=== PATIENT | female | born 1975 | race American Indian/Alaskan Native ===

== ENCOUNTER 2019-04-30 06:17 | Inpatient (IN) | payer OTHER ==
[2019-04-30] MEDS ORDERED: ASPIRIN PO ONE (06:38)
[2019-04-30 07:32] LABS: Basophils % (Auto) 0.4 % (0.0-1.8); Eosinophils % (Auto) 0.1 % (0.0-4.3); Hemoglobin 9.6 gm/dl (10.1-14.3); Lymphocytes # (Auto) 1.3 K/mm3 (1.2-5.4); Lymphocytes % (Auto) 15.4 % (13.4-35.0); Mean Corpuscular HGB Conc 32 % (30-34); Monocytes # (Auto) 0.5 K/mm3 (0.0-0.8); Monocytes % (Auto) 5.6 % (0.0-7.3); Platelet Count 457 K/mm3 (140-440); Red Blood Count 4.35 M/mm3 (3.65-5.03); Red Cell Distribution Width 19.1 % (13.2-15.2)
--- NOTE | 2019-04-30 07:35 | XRay Report ---
CHEST 2 VIEWS INDICATION: Chest Pain. COMPARISON: None FINDINGS: Support devices: None. Heart: Within normal limits. Lungs/pleura: No acute air space or interstitial disease. No pneumothorax. Additional findings: None. IMPRESSION: No acute findings. Signer Name: Patrick Reynolds Jr, MD Signed: 04/30/2019 7:30 AM Workstation Name: [id number]
[2019-04-30 07:38] LABS: Mean Corpuscular Volume 69 fl (79-97)
[2019-04-30 07:39] LABS: BUN/Creatinine Ratio 10; Blood Urea Nitrogen 7 mg/dL (7-17); Calcium 8.7 mg/dL (8.4-10.2); Hemolysis Index 0
[2019-04-30 08:26] LABS: Chol/HDL Ratio 3.82 %; HDL Cholesterol 39 mg/dL (40-59); LDL Cholesterol,Direct 108 mg/dL (50-130)
--- NOTE | 2019-04-30 08:53 | Emergency Department Report ---
ED Chest Pain HPI - General Chief Complaint: Chest Pain Stated Complaint: CHEST PAINS Time Seen by Provider: 04/30/19 08:50 Source: patient Mode of arrival: Ambulatory Limitations: No Limitations - History of Present Illness Initial Comments: This is a 43 year old female with no prior history of chest pain nor hypertension. She was awoken at 2 AM by precordial chest pain largely described as a pressure. She has been nauseated and vomited 1. She had triage labs done prior to bed placement. I was not verbally informed of a troponin of 0. 199. However I did noted on her chart as soon as I picked it up. She was seen immediately. Her EKG was nondiagnostic/essentially normal. She stated that she was largely not short of breath. She's had no recent travel nor leg pain or swelling. She states that she has no family history of coronary artery disease. She does have ongoing chest pain at the time of my encounter. MD Complaint: chest pain -: During the night Onset: awoke with symptoms Pain Location: substernal Severity: moderate, severe Quality: pressure Consistency: constant Improves With: nothing Worsens With: nothing re: nausea, vomting. denies: diaphoresis, dyspnea Other Symptoms: denies: cough, fever, syncope Treatments Prior to Arrival: none Aspirin use within the Past 7 Days: (0) No - Related Data Allergies Allergy/AdvReac Type Severity Reaction Status Date / Time No Known Allergies Allergy Unverified 04/30/19 06:38 Heart Score - HEART Score History: Highly suspicious EKG: Normal Age: 45-65 Risk factors: 1-2 risk factors Troponin: 1-3x normal limit HEART Score: 5 - Critical Actions Critical Actions: 4-6 pts:12-16.6% risk of adverse cardiac event. Should be admitted ED Review of Systems ROS: Stated complaint: CHEST PAINS Other details as noted in HPI Constitutional: denies: chills, fever Eyes: denies: eye pain, eye discharge, vision change ENT: denies: ear pain, throat pain Respiratory: denies: cough, shortness of breath, wheezing Cardiovascular: chest pain. denies: palpitations Endocrine: no symptoms reported Gastrointestinal: denies: abdominal pain, nausea, diarrhea Genitourinary: denies: urgency, dysuria, discharge Musculoskeletal: denies: back pain, joint swelling, arthralgia Skin: denies: rash, lesions Neurological: denies: headache, weakness, paresthesias Psychiatric: denies: anxiety, depression Hematological/Lymphatic: denies: easy bleeding, easy bruising ED Past Medical Hx - Past Medical History Previous Medical History?: Yes - Surgical History Past Surgical History?: Yes Additional Surgical History: Tubal Ligation - Social History Smoking Status: Current Every Day Smoker Substance Use Type: None ED Physical Exam - General Limitations: No Limitations General appearance: alert, other (appears uncomfortable) - Head Head exam: Present: atraumatic, normocephalic - Eye Eye exam: Present: normal appearance. Absent: scleral icterus - ENT ENT exam: Present: mucous membranes moist - Neck Neck exam: Present: normal inspection - Respiratory Respiratory exam: Present: normal lung sounds bilaterally. Absent: respiratory distress - Cardiovascular Cardiovascular Exam: Present: regular rate, normal rhythm. Absent: systolic murmur, diastolic murmur, rubs, gallop - GI/Abdominal GI/Abdominal exam: Present: soft, normal bowel sounds. Absent: distended, tenderness, guarding, rebound - Extremities Exam Extremities exam: Present: normal inspection, normal capillary refill. Absent: tenderness, calf tenderness - Back Exam Back exam: Present: normal inspection - Neurological Exam Neurological exam: Present: alert, oriented X3, CN II-XII intact. Absent: motor sensory deficit - Psychiatric Psychiatric exam: Present: normal affect, normal mood - Skin Skin exam: Present: warm, dry, intact, normal color. Absent: rash ED Course Vital Signs 04/30/19 04/30/19 06:32 09:04 Temperature 98.8 F Pulse Rate 90 77 Respiratory 18 16 Rate Blood Pressure 156/116 Blood Pressure 172/111 [Left] O2 Sat by Pulse 98 100 Oximetry - Reevaluation(s) Reevaluation #1: This was informed to initiate nitrates as soon as I came to the bedside. Cardiology was called. Dr. Jeanne Chaves came and as soon as a repeat EKG was performed we reviewed it. There was some serial changes which were suggestive of ischemia. Dr. Chaves stated the patient will be going to the [facility]. She was also started on anticoagulation and a nitro drip. 04/30/19 09:43 RIVERA score - Rivera Score Age > 65: (0) No Aspirin use within the Past 7 Days: (0) No 3 or more CAD Risk Factors: (0) No 2 or more Angina events in past 24 hrs: (0) No Known CAD with more than 50% Stenosis: (0) No Elevated Cardiac Markers: (1) Yes ST Deviation Greater than 0.5mm: (0) No RIVERA Score: 1 ED Medical Decision Making - Lab Data Result diagrams: 04/30/19 06:49 04/30/19 06:49 Laboratory Results - last 24 hr 04/30/19 04/30/19 04/30/19 06:49 06:49 06:49 WBC 8.2 RBC 4.35 Hgb 9.6 L Hct 30.0 L MCV 69 L MCH 22 L MCHC 32 RDW 19.1 H Plt Count 457 H Lymph % (Auto) 15.4 Titus % (Auto) 5.6 Eos % (Auto) 0.1 Baso % (Auto) 0.4 Lymph # 1.3 Titus # 0.5 Eos # 0.0 Baso # 0.0 Seg Neutrophils % 78.5 H Seg Neutrophils # 6.5 Sodium 141 Potassium 4.0 Chloride 106.5 Carbon Dioxide 21 L Anion Gap 18 BUN 7 Creatinine 0.7 Estimated GFR > 60 BUN/Creatinine Ratio 10 Glucose 142 H Calcium 8.7 Troponin T 0.199 H* Triglycerides 75 Cholesterol 149 LDL Cholesterol Direct 108 HDL Cholesterol 39 L Cholesterol/HDL Ratio 3.82 HCG, Qual Negative - EKG Data -: EKG Interpreted by Me EKG shows normal: sinus rhythm, axis, intervals, QRS complexes, ST-T waves Rate: normal - EKG Data Interpretation: no acute changes - Radiology Data Radiology results: image reviewed Critical Care Time: Yes Critical care time in (mins) excluding proc time.: 45 Critical care attestation.: If time is entered above; I have spent that time in minutes in the direct care of this critically ill patient, excluding procedure time. ED Disposition Clinical Impression: Acute coronary syndrome Disposition: OP ADMIT IP TO THIS HOSP Is pt being admited?: Yes Does the pt Need Aspirin: Yes Condition: Stable Referrals: NOE WOLFE MD [Primary Care Provider] - 3-5 Days
[2019-04-30] MEDS ORDERED: NITRO-BID 2% TP ONE ×2 (08:59→09:01)
[2019-04-30] MEDS ORDERED: MORPHINE IV ONE (08:59)
[2019-04-30] MEDS ORDERED: ZOFRAN IV ONE (08:59)
[2019-04-30] MEDS ORDERED: ECOTRIN PO ONE (09:01)
[2019-04-30] MEDS ORDERED: NITROSTAT SL ONE (09:01)
[2019-04-30] MEDS: NITROSTAT SL PRN ×2 (09:15→09:20)
[2019-04-30] MEDS ORDERED: HEPARIN 10,000 UNITS/10 ML IV ONE (09:31)
[2019-04-30] MEDS ORDERED: SUBLIMAZE ONE (09:37)
[2019-04-30] MEDS ORDERED: HEPARIN/NS 5000 UNIT/500ML(CATH LAB) 1,000 ML IR ONE (09:37)
[2019-04-30] MEDS ORDERED: VERSED ONE (09:37)
[2019-04-30] MEDS ORDERED: NITROGLYCERIN SYRINGE 6 ML ONE (09:38)
[2019-04-30] MEDS ORDERED: CALAN ONE (09:38)
[2019-04-30] MEDS ORDERED: XYLOCAINE 2% INFILTRATI ONE (09:38)
[2019-04-30] MEDS ORDERED: NACL 0.9% 1000 ML 1,000 ML ONE (09:39)
[2019-04-30 09:57] LABS: INR 1.12 (0.87-1.13)
[2019-04-30 09:58] LABS: Alanine Aminotransferase 21 units/L (7-56); Albumin 4.3 g/dL (3.9-5)
[2019-04-30 09:59] LABS: Partial Thromboplastin Time 28.2 Sec. (24.2-36.6)
[2019-04-30] MEDS ORDERED: HEPARIN/ 0.45% NACL-25,000 UNIT/500 ML 25,000 UNIT/500 ML BAG IV SCH (10:00)
[2019-04-30 10:06] LABS: Bilirubin,Direct < 0.2 mg/dL (0-0.2)
[2019-04-30] MEDS: HEPARIN 10,000 UNITS/10 ML ONE ×2 (10:10→10:17)
[2019-04-30] MEDS ORDERED: ZOFRAN IV PRN (10:17)
[2019-04-30] MEDS ORDERED: TYLENOL PO PRN (10:17)
[2019-04-30] MEDS ORDERED: AGGRASTAT DRIP (12.5 MG/250 ML) 12,500 MCG/250 ML BAG IV ONE (10:33)
--- NOTE | 2019-04-30 10:38 | History and Physical Report ---
History of Present Illness Date of examination: 04/30/19 Chief complaint: Chest pains History of present illness: Patient is a 43 yo woman without any chronic medical problems, not on any medications who presents to [facility] ED with sudden onset of severe constant sharp throbbing pressure like radiating to left shoulder chest pains that woke her up out of her sleep at 2 am this morning associated with n/v x 1 without aggravating or relieving factors. She denies SOB, cough, syncope, palpitations, trauma, prior episodes (first visit here), fever, chills. D/W Dr. Chaves in ED, he wants IV nitroglycerin drip due to continuous chest pains and iv heparin; therefore, patient will be admitted to ICU due to the IV nitroglycerin drip. Patient denies any early CAD in family. PMH: as hpi PSH: tubal ligation, left wrist carpal tunnel release surgery SH: denies tobacco, alcohol, illicit drugs FH: Hypertension, DM, mother had CVA in her 70s ROS: Constitutional: denies: fever ENT: denies: throat or neck pain Respiratory: denies: cough, shortness of breath Cardiovascular: + chest pain Endocrine: denies unexplained weight loss or gain Gastrointestinal: denies: abdominal pain, nausea Genitourinary: denies: dysuria Rectal: denies no incontinence, no bleeding, no itching, no discharge Musculoskeletal: denies swelling, myaglia, muscle weakness Skin: denies: rash Neurological: denies: headache Hematological/Lymphatic: denies: easy bleeding or easy bruising Allergic/Immunologic: no urticaria, no allergic rhinitis, no anaphylaxis Psych: denies sadness or hopelessness, SI/HI Medications and Allergies Allergies Allergy/AdvReac Type Severity Reaction Status Date / Time No Known Allergies Allergy Unverified 04/30/19 06:38 Active Meds: Active Medications Acetaminophen (Tylenol) 650 mg PO Q6H PRN PRN Reason: Non Cardiac Pain or Temp>100.5 Aspirin (Aspirin) 325 mg PO QDAY ZARA Atorvastatin Calcium (Lipitor) 80 mg PO QHS ZARA Heparin Sodium/Sodium Chloride (Heparin/ 0.45% Nacl-25,000 Unit/500 Ml) 25,000 unit in 500 mls @ 20 mls/hr IV TITRATE ZARA; Protocol Last Admin: 04/30/19 09:50 Dose: 15 units/kg/hr, 27.896 mls/hr Documented by: Metoprolol Tartrate (Lopressor) 25 mg PO BID ZARA Morphine Sulfate (Morphine) 2 mg IV Q4H PRN PRN Reason: Pain , Severe (7-10) Nitroglycerin (Nitrostat) 0.4 mg SL .Q5MIN PRN PRN Reason: Chest Pain Last Admin: 04/30/19 09:20 Dose: 0.4 mg Documented by: Ondansetron HCl (Zofran) 4 mg IV Q4H PRN PRN Reason: Nausea And Vomiting Pantoprazole Sodium (Protonix) 40 mg PO QDAY ZARA Polyethylene Glycol (Miralax 3350) 17 gm PO QDAY PRN PRN Reason: Constipation Exam - Physical Exam Narrative exam: Gen: WDWN, NAD, Awake, Alert, Orientated HEENT: NCAT, EOMI, PERRL, OP Clear Neck: supple, no adenopathy, no thyromegaly, no JVD CVS/Heart: RRR, normal S1S2, pulses present bilaterally Chest/Lungs: CTA B, Symmetrical chest expansion, good air entry bilaterally GI/Abdomen: soft, NTND, good bowel sounds, no guarding or rebound /Bladder: no suprapubic tenderness, no CVA or paraspinal tenderness Extermity/Skin: no c/c/e, no obvious rash MSK: FROM x 4 Neuro: CN 2-12 grossly intact, no new focal deficits Psych: anxious after learning that she has heart attack - Constitutional Vitals: Temp Pulse Resp BP Pulse Ox 98.8 F 82 18 142/94 100 04/30/19 06:32 04/30/19 09:39 04/30/19 09:27 04/30/19 09:39 04/30/19 09:39 Results - Labs CBC & Chem 7: 04/30/19 06:49 04/30/19 06:49 Labs: Abnormal lab results 04/30/19 04/30/19 04/30/19 Range/Units 06:49 06:49 09:21 Hgb 9.6 L (10.1-14.3) gm/dl Hct 30.0 L (30.3-42.9) % MCV 69 L (79-97) fl MCH 22 L (28-32) pg RDW 19.1 H (13.2-15.2) % Plt Count 457 H (140-440) K/mm3 Seg Neutrophils % 78.5 H (40.0-70.0) % Carbon Dioxide 21 L (22-30) mmol/L Glucose 142 H (65-100) mg/dL AST (5-40) units/L Troponin T 0.199 H* 0.415 H* D (0.00-0.029) ng/mL HDL Cholesterol 39 L (40-59) mg/dL 04/30/19 Range/Units 09:21 Hgb (10.1-14.3) gm/dl Hct (30.3-42.9) % MCV (79-97) fl MCH (28-32) pg RDW (13.2-15.2) % Plt Count (140-440) K/mm3 Seg Neutrophils % (40.0-70.0) % Carbon Dioxide (22-30) mmol/L Glucose (65-100) mg/dL AST 48 H (5-40) units/L Troponin T (0.00-0.029) ng/mL HDL Cholesterol (40-59) mg/dL Assessment and Plan Patient is a 43 yo woman without any chronic medical problems, not on any medications who presents to [facility] ED with sudden onset of severe constant sharp t hrobbing pressure like radiating to left shoulder chest pains that woke her up out of her sleep at 2 am this morning associated with n/v x 1 without aggravating or relieving factors. She denies SOB, cough, syncope, palpitations, trauma, prior episodes (first visit here), fever, chills. D/W Dr. Chaves in ED, he wants IV nitroglycerin drip due to continuous chest pains and iv heparin; therefore, patient will be admitted to ICU due to the IV nitroglycerin drip. Patient denies any early CAD in family. * EKG is evolving with concern of STEMI especially in lateral leads (my review), d/w Dr. Chaves who will review NSTEMI per Dr. Uzma Chaves: treat with iv heparin drip, asa, bblocker, high intensity statin, zofran, ntg and morphine prn. Orderd Lipid panel, TSH. Consider ECHO at some point. Suspected Acute diastolic heart failure related to above: treat with bblocker, ntg Uncontrolled elevated blood pressure, most likely new onset Hypertension: low salt/cardiac diet and treat with antihypertensives, bblocker for now Anemia, microcytic: check iron study, ferritin Hyperglycemia without history of DM: check A1c, fasting bmp in am Dyslipidemia, new: start Statin Isolated elevated AST, mildly at 48 (normal level is up to 40): continue to monitor CMP DVT ppx: heparin drip GI ppx: protonix full code Disposition: ICU CCT 32 minutes
[2019-04-30] MEDS ORDERED: EFFIENT PO ONE (10:43)
[2019-04-30] MEDS ORDERED: ALUM-MAG HYDROX-SIMETH 200-200-20MG/5ML ONE (10:44)
[2019-04-30] MEDS ORDERED: MORPHINE IV PRN (11:00)
[2019-04-30] MEDS ORDERED: MIRALAX 3350 PO PRN (11:00)
--- NOTE | 2019-04-30 11:07 | Consultation ---
History of Present Illness Consult date: 04/30/19 History of present illness: This 42-year-old -[place] lady smoker Y to 6 cigarettes per day for the last 20 years woke up with the precordial tightness and pressure sensation radiating to left shoulder also with nausea and vomiting and came to emergency room at 8AM. Initial EKG was normal. Patient continued to have chest pain after giving aspirin and sublingual nitroglycerin and Nitropaste. Second EKG was done after about 15 minutes it showed minimal ST-T changes in precordial leads. The case was discussed with Dr. Rnoy Grey, who was in the beginning and scheduled for cardiac cath for acute coronary syndrome and possible major artery blockage in the left coronary arteries. Pros and cardiac catheterization and possible stent deployment discussed in the emergency room. Patient was given heparin and the tube was attempted and transferred to [facility]. Patient's parents have high blood pressure but no coronary events. Patient denies any history of diabetes mellitus, abnormal lipid profile. She has 3 children Past History Past Medical History: denies: anemia, COPD, diabetes, hypertension, hyperlipi demia, stroke Past Surgical History: denies: No surgical history Social history: smoking (5-6 cigarretes/d) Family history: hypertension Medications and Allergies Allergies Allergy/AdvReac Type Severity Reaction Status Date / Time No Known Allergies Allergy Unverified 04/30/19 06:38 Active Meds: Active Medications Acetaminophen (Tylenol) 650 mg PO Q6H PRN PRN Reason: Non Cardiac Pain or Temp>100.5 Aspirin (Aspirin) 325 mg PO QDAY ZARA Atorvastatin Calcium (Lipitor) 80 mg PO QHS [facility] Heparin Sodium/Sodium Chloride (Heparin/ 0.45% Nacl-25,000 Unit/500 Ml) 25,000 unit in 500 mls @ 20 mls/hr IV TITRATE ZARA; Protocol Last Admin: 04/30/19 09:50 Dose: 15 units/kg/hr, 27.896 mls/hr Documented by: Metoprolol Tartrate (Lopressor) 25 mg PO BID ZARA Morphine Sulfate (Morphine) 2 mg IV Q4H PRN PRN Reason: Pain , Severe (7-10) Nitroglycerin (Nitrostat) 0.4 mg SL .Q5MIN PRN PRN Reason: Chest Pain Last Admin: 04/30/19 09:20 Dose: 0.4 mg Documented by: Ondansetron HCl (Zofran) 4 mg IV Q4H PRN PRN Reason: Nausea And Vomiting Pantoprazole Sodium (Protonix) 40 mg PO QDAY ZARA Polyethylene Glycol (Miralax 3350) 17 gm PO QDAY PRN PRN Reason: Constipation Review of Systems All systems: negative (for hypertension noted in ER) Constitutional: no weight gain, no sweats, no fatigue, no weakness Ears, nose, mouth and throat: deferred Breasts: deferred Cardiovascular: chest pain, no edema, no syncope, no lightheadedness, no shortness of breath, no dyspnea on exertion, no paroxysmal nocturnal dyspnea, no claudication Respiratory: no cough, no wheezing Gastrointestinal: nausea, vomiting Endocrine: no cold intolerance Hematologic/Lymphatic: no easy bruising, no easy bleeding Allergic/Immunologic: no wheezing Physical Examination Vital Signs Temp Pulse Resp BP Pulse Ox 98.8 F 90 18 156/116 98 04/30/19 06:32 04/30/19 06:32 04/30/19 06:32 04/30/19 06:32 04/30/19 06:32 General appearance: mild distress, well-nourished Neck: Positive: neck supple, trachea midline. Negative: JVD/HJR Cardiac: Positive: Regular Rate, S1/S2, S4 Lungs: Positive: clear to auscultation Neuro: Positive: Grossly Intact Abdomen: Positive: Unremarkable, Soft, Active Bowel Sounds Extremities: Present: normal, lower extr. pulses (4+) Results 04/30/19 06:49 04/30/19 06:49 Cardiac Enzymes 04/30/19 Range/Units 09:21 AST 48 H (5-40) units/L Coagulation 04/30/19 Range/Units 09:21 PT 14.1 (12.2-14.9) Sec. INR 1.12 (0.87-1.13) APTT 28.2 (24.2-36.6) Sec. Lipids 04/30/19 Range/Units 06:49 Triglycerides 75 (2-149) mg/dL Cholesterol 149 (50-199) mg/dL HDL Cholesterol 39 L (40-59) mg/dL Cholesterol/HDL Ratio 3.82 % CBC 04/30/19 Range/Units 06:49 WBC 8.2 (4.5-11.0) K/mm3 RBC 4.35 (3.65-5.03) M/mm3 Hgb 9.6 L (10.1-14.3) gm/dl Hct 30.0 L (30.3-42.9) % Plt Count 457 H (140-440) K/mm3 Lymph # 1.3 (1.2-5.4) K/mm3 [place] # 0.5 (0.0-0.8) K/mm3 Eos # 0.0 (0.0-0.4) K/mm3 Baso # 0.0 (0.0-0.1) K/mm3 Comprehensive Metabolic Panel 04/30/19 04/30/19 Range/Units 06:49 09:21 Sodium 141 (137-145) mmol/L Potassium 4.0 (3.6-5.0) mmol/L Chloride 106.5 (98-107) mmol/L Carbon Dioxide 21 L (22-30) mmol/L BUN 7 (7-17) mg/dL Creatinine 0.7 (0.7-1.2) mg/dL Glucose 142 H (65-100) mg/dL Calcium 8.7 (8.4-10.2) mg/dL Direct Bilirubin < 0.2 (0-0.2) mg/dL Indirect Bilirubin 0.1 mg/dL AST 48 H (5-40) units/L ALT 21 (7-56) units/L Alkaline Phosphatase 63 (35-129) units/L Total Protein 8.2 (6.3-8.2) g/dL Albumin 4.3 (3.9-5) g/dL EKG interpretations Repolarization changes or abnormalities: ST or T wave suggestive of ischemia (in precardial leads) Assessment and Plan NSTEMI Hypertension. Dyslipidemia. Plan and recommendation. Although it is N STEMI, having a lot of chest pain with some ST-T changes and was taken to [facility] and cardiac cath was done by Dr. Grey.
--- NOTE | 2019-04-30 11:28 | Cardiac Catherization Report ---
CARDIAC CATHETERIZATION REFERRING PHYSICIAN: Dr. Laurence Chaves. INDICATION FOR PROCEDURE: The patient is a pleasant 43-year-old -[place] female, history of tobacco use, presents here with chest pain. Findings consistent with non-ST elevation myocardial infarction, ongoing chest pain, referred for left heart catheterization. Risks, benefits, and potential alternatives explained at length prior to obtaining informed consent. PROCEDURE IN DETAIL: The patient was brought to catheterization lab in a postabsorptive state, prepped and draped in sterile fashion. Jose Elias's test in right hand was normal. A 2 mL of 2% lidocaine used to anesthetize the right wrist. A standard 6-Pashto hydrophilic sheath used to cannulate the right radial artery via modified Seldinger technique. All exchanges were performed to exchange a J-tip guidewire. JL3.5 catheter used to engage the left main. No dampening or ventricularization. Cineangiography performed in multiple projections. JR4 catheter used to cross the aortic valve under fluoroscopic guidance. Left ventriculography performed in 30 LEGGETT and 30 BRENDA projections via hand injections, catheter flushed. Manual pullback performed with continuous pressure monitoring. Catheter was used to engage the right coronary. No dampening or ventricularization. Cineangiography performed in all projections. DATA: Aortic pressure is 130/80, LV pressure is 130, LVEDP of 20 mmHg. Left ventriculography reveals preserved LV function, estimated ejection fraction of 50-55%. No evidence of aortic stenosis. Normal LVEDP. CORONARY ANATOMY: This is a right dominant system. Right coronary is a moderate sized vessel, courses AV groove. No significant disease noted. Left main is short and trifurcates into left circumflex, ramus intermedius and LAD. Left circumflex is a moderate-sized vessel, courses AV groove. No significant disease. The ramus intermedius is a moderate-sized vessel, courses medial aspect to the lateral wall. No significant disease. LAD is a moderate-sized vessel, courses anterior intergroove, wraps around the apex. There is an atherothrombotic plaque rupture in the proximal LAD with approximately 90% narrowing, and angiographic characteristics of thrombus are noted. This is certainly the culprit lesion of her non-STEMI/presentation. We decided to proceed with PCI. Additional heparin was given. Abnormal ACT is confirmed. We turned our attention to PCI. EBU3.5 guide used to engage the left main without difficulty. Effient and aspirin are loaded. We used a [place] [employer] wire across the lesion without difficulty. We direct stented the lesion with a 3.0 x 15 Luciano drug-eluting stent. Excellent angiographic result. Next, intravascular ultrasound was performed, which revealed a well-opposed and well-expanded stent. Excellent final angiographic result. Mild thrombus in the distal LAD. Single bolus of Aggrastat is given. The patient is clinically stable, chest pain free, feeling much better. The patient tolerated procedure well. No complications. I directly supervised the administration of moderate sedation with fentanyl and Versed from 10 a.m. to 10:45 a.m. CONCLUSIONS: 1. Severe atherothrombotic 90% stenosis of the proximal LAD in the milieu of a non-ST elevation myocardial infarction and active chest pain. A successful IVUS guided PCI with placement of drug-eluting stent ([place] 3.0 x 15) with excellent final angiographic and ultrasonographic results. 2. No other significant disease, the remainder of the coronary tree. 3. Preserved ventricular function, estimated ejection fraction of 50-55%. 4. No evidence of aortic stenosis. Standard radial care. Effient, aspirin, statin therapy. Smoking cessation discussed at length. I spent over 5 minutes discussing smoking cessation and quitting techniques. Results of procedure explained to the patient and family. All questions and concerns were addressed. We will check an echocardiogram. Nutrition consult. We will follow the patient along with the hospitalist. The patient will follow up with Dr. Laurence Chaves in the office. JOB# [id number] SBM/NTS
--- NOTE | 2019-04-30 12:27 | Consultation ---
History of Present Illness Consult date: 04/30/19 Requesting physician: TRACI ROD Reason for consult: other History of present illness: Patient is a 43 yo woman without any chronic medical problems, not on any medications who presents to [facility] ED with sudden onset of severe constant sharp throbbing pressure like radiating to left shoulder chest pains that woke her up out of her sleep at 2 am this morning associated with n/v x 1 without aggravating or relieving factors. She denies SOB, cough, syncope, palpitations, trauma, prior episodes (first visit here), fever, chills. Patient denies any early CAD in family. Currently on nitroglycerin infusion and heparin. For [employer] and LHC today I have been consulted for critical care management PMH: as hpi PSH: tubal ligation, left wrist carpal tunnel release surgery SH: denies tobacco, alcohol, illicit drugs FH: Hypertension, DM, mother had CVA in her 70s ROS: Constitutional: denies: fever ENT: denies: throat or neck pain Respiratory: denies: cough, shortness of breath Cardiovascular: + chest pain Endocrine: denies unexplained weight loss or gain Gastrointestinal: denies: abdominal pain, nausea Genitourinary: denies: dysuria Rectal: denies no incontinence, no bleeding, no itching, no discharge Musculoskeletal: denies swelling, myaglia, muscle weakness Skin: denies: rash Neurological: denies: headache Hematological/Lymphatic: denies: easy bleeding or easy bruising Allergic/Immunologic: no urticaria, no allergic rhinitis, no anaphylaxis Psych: denies sadness or hopelessness, SI/HI Past History Past Medical History: denies: anemia, COPD, diabetes, hypertension, hyperl ipidemia, stroke Past Surgical History: denies: No surgical history Social history: smoking (5-6 cigarretes/d) Family history: hypertension Medications and Allergies Allergies Allergy/AdvReac Type Severity Reaction Status Date / Time No Known Allergies Allergy Unverified 04/30/19 06:38 Active Meds: Active Medications Acetaminophen (Tylenol) 650 mg PO Q6H PRN PRN Reason: Non Cardiac Pain or Temp>100.5 Aspirin (Aspirin) 325 mg PO QDAY ZARA Atorvastatin Calcium (Lipitor) 80 mg PO QHS ZARA Heparin Sodium/Sodium Chloride (Heparin/ 0.45% Nacl-25,000 Unit/500 Ml) 25,000 unit in 500 mls @ 20 mls/hr IV TITRATE ZARA; Protocol Last Admin: 04/30/19 09:50 Dose: 15 units/kg/hr, 27.896 mls/hr Documented by: Metoprolol Tartrate (Lopressor) 25 mg PO BID ZARA Morphine Sulfate (Morphine) 2 mg IV Q4H PRN PRN Reason: Pain , Severe (7-10) Nitroglycerin (Nitrostat) 0.4 mg SL .Q5MIN PRN PRN Reason: Chest Pain Last Admin: 04/30/19 09:20 Dose: 0.4 mg Documented by: Ondansetron HCl (Zofran) 4 mg IV Q4H PRN PRN Reason: Nausea And Vomiting Pantoprazole Sodium (Protonix) 40 mg PO QDAY ZARA Polyethylene Glycol (Miralax 3350) 17 gm PO QDAY PRN PRN Reason: Constipation Physical Examination Vital signs: Vital Signs Temp Pulse Resp BP Pulse Ox 98.8 F 90 18 156/116 98 04/30/19 06:32 04/30/19 06:32 04/30/19 06:32 04/30/19 06:32 04/30/19 06:32 Gen: WDWN, NAD, Awake, Alert, Orientated HEENT: NCAT, EOMI, PERRL, OP Clear Neck: supple, no adenopathy, no thyromegaly, no JVD CVS/Heart: RRR, normal S1S2, pulses present bilaterally Chest/Lungs: CTA B, Symmetrical chest expansion, good air entry bilaterally GI/Abdomen: soft, NTND, good bowel sounds, no guarding or rebound /Bladder: no suprapubic tenderness, no CVA or paraspinal tenderness Extermity/Skin: no c/c/e, no obvious rash MSK: FROM x 4 Neuro: CN 2-12 grossly intact, no new focal deficits Psych: anxious Results - Laboratory Findings CBC and BMP: 04/30/19 06:49 05/01/19 05:15 PT/INR, D-dimer PT 14.1 Sec. (12.2-14.9) 04/30/19 09:21 INR 1.12 (0.87-1.13) 04/30/19 09:21 Abnormal lab findings: Abnormal Labs 04/30/19 04/30/1919 06:49 06:49 09:21 Hgb 9.6 L Hct 30.0 L MCV 69 L MCH 22 L RDW 19.1 H Plt Count 457 H Seg Neutrophils % 78.5 H Carbon Dioxide 21 L Glucose 142 H AST Troponin T 0.199 H* 0.415 H* D HDL Cholesterol 39 L 04/30/19 09:21 Hgb Hct MCV MCH RDW Plt Count Seg Neutrophils % Carbon Dioxide Glucose AST 48 H Troponin T HDL Cholesterol Assessment and Plan NSTEMI for [facility] Suspected Acute diastolic heart failure Uncontrolled elevated blood pressure, most likely new onset Hypertension Tobacco use disorder Anemia, microcytic: Hyperglycemia without history of DM Dyslipidemia, new Isolated elevated AST -Cardioprotective measures, await [facility] -Blood pressure control -VTE prophylaxis -Smoking cessation counselling done at the bedside for 5 minutes -Lifestyle modifications -Statin therapy, chest pain management -Accuchecks with glycemic control -Transthoracic echocardiogram
[2019-04-30] MEDS ORDERED: LOPRESSOR ONE (15:29)
[2019-04-30] MEDS: LOPRESSOR PO SCH ×2 (15:30→21:35)
[2019-04-30 21:29] LABS: Creatine Kinase MB 124.3 ng/mL (0.0-4.0)
[2019-05-01 00:01] LABS: Creatine Kinase MB 97.8 ng/mL (0.0-4.0)
[2019-05-01 06:11] LABS: Bacteria,Urine 1+ /HPF (Negative); Bilirubin,Urine NEG (Negative); Blood,Urine MOD (Negative); Color,Urine YELLOW (Yellow); Mucus,Urine 3+ /HPF; Urobilinogen,Urine < 2.0 mg/dL (<2.0)
[2019-05-01 06:17] LABS: Amphetamine Screen,Urine PRESUMPTIVE NEGATIVE; Cocaine Screen,Urine PRESUMPTIVE NEGATIVE; Methadone Screen,Urine PRESUMPTIVE NEGATIVE; Opiate Screen,Urine PRESUMPTIVE NEGATIVE
[2019-05-01 06:20] LABS: Alanine Aminotransferase 26 units/L (7-56); Albumin 3.8 g/dL (3.9-5); BUN/Creatinine Ratio 16; Blood Urea Nitrogen 13 mg/dL (7-17); Calcium 8.8 mg/dL (8.4-10.2); Hemolysis Index 2; Iron 19 ug/dL (37-170); Total Iron Binding Capacity 419 mcg/dL (250-450)
[2019-05-01 06:45] LABS: Benzodiazepines Screen,Urine PRESUMPTIVE POSITIVE; Cannabinoid Screen,Urine PRESUMPTIVE POSITIVE
[2019-05-01] MEDS ORDERED: ASPIRIN PO SCH (10:00)
[2019-05-01] MEDS: BABY ASPIRIN PO SCH (11:00)
[2019-05-01] MEDS: PROTONIX PO SCH (11:00)
[2019-05-01] MEDS: LOPRESSOR PO SCH ×2 (11:00→22:48)
[2019-05-01] MEDS: EFFIENT PO SCH (11:00)
--- NOTE | 2019-05-01 13:16 | Progress Note ---
Assessment and Plan S/p [facility] with PCI of LAD yesterday. Cont ASA, Effient, statin. Pt noted to have brief bouts of NSVT overnight, pt asymptomatic. Cont lopressor and titrate as tolerated. Obtain echo. Likely d/c home in AM. The patient has been seen in conjunction with Dr. Chaves who agrees with the assessment and plan of care. - Patient Problems (1) NSTEMI (non-ST elevated myocardial infarction) Current Visit: Yes Status: Acute (2) CAD (coronary artery disease) Current Visit: Yes Status: Chronic (3) Stented coronary artery Current Visit: Yes Status: Chronic (4) HTN (hypertension) Current Visit: Yes Status: Chronic (5) Dyslipidemia Current Visit: Yes Status: Chronic (6) Tobacco use Current Visit: Yes Status: Chronic Subjective Date of service: 05/01/19 Principal diagnosis: NSTEMI Interval history: pt resting comfortably in bed, no current complaints. tele reviewed - pt in SR with brief bouts of NSVT noted overnight with longest being 10 beats, pt asymptomatic. Objective Last Vital Signs Temp 98.6 F 05/01/19 12:28 Pulse 70 05/01/19 12:28 Resp 20 05/01/19 08:29 BP 123/84 05/01/19 12:28 Pulse Ox 99 05/01/19 12:28 - Physical Examination General: No Apparent Distress Neck: Positive: neck supple, trachea midline. Negative: JVD/HJR Cardiac: Positive: Reg Rate and Rhythm, S1/S2 Lungs: Positive: Normal Exam Neuro: Positive: Grossly Intact Abdomen: Positive: Unremarkable, Soft, Active Bowel Sounds Incision: Cardiac Cath Site (right radial c/d/i) Extremities: Present: normal, lower extr. pulses (4+) - Labs and Meds Cardiac Enzymes 04/30/19 04/30/19 05/01/19 Range/Units 20:55 23:23 05:15 AST 92 H (5-40) units/L CK-MB (CK-2) 124.3 H 97.8 H (0.0-4.0) ng/mL Comprehensive Metabolic Panel 05/01/19 Range/Units 05:15 Sodium 140 (137-145) mmol/L Potassium 3.6 (3.6-5.0) mmol/L Chloride 106.1 (98-107) mmol/L Carbon Dioxide 21 L (22-30) mmol/L BUN 13 (7-17) mg/dL Creatinine 0.8 (0.7-1.2) mg/dL Glucose 107 H (65-100) mg/dL Calcium 8.8 (8.4-10.2) mg/dL AST 92 H (5-40) units/L ALT 26 (7-56) units/L Alkaline Phosphatase 58 (35-129) units/L Total Protein 7.4 (6.3-8.2) g/dL Albumin 3.8 L (3.9-5) g/dL - Imaging and Cardiology EKG: report reviewed, image reviewed Echo: pending Cardiac cath: report reviewed - Telemetry EKG Rhythm: Sinus Rhythm Repolarization changes or abnormalities: ST or T wave suggestive of ischemia (in precardial leads)
--- NOTE | 2019-05-01 14:24 | Progress Note ---
Assessment and Plan NSTEMI s/p [facility] with PCI of LAD . Suspected Acute diastolic heart failure Uncontrolled elevated blood pressure, most likely new onset Hypertension Tobacco use disorder Anemia, microcytic: Hyperglycemia without history of DM Dyslipidemia, new Isolated elevated AST -Cardioprotective measures -Electrolyte replacement, NSVT yesterday -Blood pressure control -VTE prophylaxis -Smoking cessation counselling done at the bedside for 5 minutes -Lifestyle modifications -Statin therapy -Accuchecks with glycemic control- get HBA1C -Transthoracic echocardiogram Subjective Date of service: 05/01/19 Principal diagnosis: NSTEMI Interval history: Patient is seen today for: Chest pain, STEMI s/p C with PCI LAD; tobacco use disorder; Hypertension Seen and examined at bedside; 24-hour events reviewed; nursing and respiratory care staff consulted; no adverse overnight events reported to me; NSVT on telemetry, asymptomatic. Denies any chest pain, no shortness of breath, no fevers or chills, no nausea or vomiting. Lying peacefully in bed. Vitals, labs, medications, chart reviewed Objective - Exam Narrative Exam: Gen: WDWN, NAD, Awake, Alert, Orientated HEENT: NCAT, EOMI, PERRL, OP Clear Neck: supple, no adenopathy, no thyromegaly, no JVD CVS/Heart: RRR, normal S1S2, pulses present bilaterally Chest/Lungs: CTA B, Symmetrical chest expansion, good air entry bilaterally GI/Abdomen: soft, NTND, good bowel sounds, no guarding or rebound /Bladder: no suprapubic tenderness, no CVA or paraspinal tenderness Extermity/Skin: no c/c/e, no obvious rash MSK: FROM x 4 Neuro: CN 2-12 grossly intact, no new focal deficits Psych: normal mood and affect Vital Signs - 12hr 05/01/19 05/01/19 05/01/19 03:37 08:29 09:22 Temperature 98.5 F 98.4 F Pulse Rate 70 69 68 Respiratory 16 20 Rate Blood Pressure 134/94 140/95 O2 Sat by Pulse 98 98 Oximetry 05/01/19 05/01/19 10:00 12:28 Temperature 98.6 F Pulse Rate 68 70 Respiratory Rate Blood Pressure 123/84 O2 Sat by Pulse 99 Oximetry CBC and BMP: 04/30/19 06:49 05/01/19 05:15 ABG, PT/INR, D-dimer: PT/INR, D-dimer PT 14.1 Sec. (12.2-14.9) 04/30/19 09:21 INR 1.12 (0.87-1.13) 04/30/19 09:21 Abnormal lab findings: Abnormal Labs 04/30/19 04/30/19 04/30/19 06:49 06:49 09:21 Hgb 9.6 L Hct 30.0 L MCV 69 L MCH 22 L RDW 19.1 H Plt Count 457 H Seg Neutrophils % 78.5 H Activated Clotting Time Carbon Dioxide 21 L Glucose 142 H Iron Ferritin AST Total Creatine Kinase CK-MB (CK-2) CK-MB (CK-2) Rel Index Troponin T 0.199 H* 0.415 H* D Albumin HDL Cholesterol 39 L 04/30/19 04/30/19 04/30/19 09:21 10:34 20:55 Hgb Hct MCV MCH RDW Plt Count Seg Neutrophils % Activated Clotting Time 235 H Carbon Dioxide Glucose Iron Ferritin AST 48 H Total Creatine Kinase 1261 H CK-MB (CK-2) 124.3 H CK-MB (CK-2) Rel Index 9.8 H Troponin T 2.130 H* D Albumin HDL Cholesterol 04/30/19 05/01/19 05/01/19 23:23 05:15 05:15 Hgb Hct MCV MCH RDW Plt Count Seg Neutrophils % Activated Clotting Time Carbon Dioxide 21 L Glucose 107 H Iron 19 L Ferritin 4.5 L AST 92 H Total Creatine Kinase 1073 H CK-MB (CK-2) 97.8 H CK-MB (CK-2) Rel Index 9.1 H Troponin T 2.070 H* Albumin 3.8 L HDL Cholesterol
--- NOTE | 2019-05-01 14:56 | Progress Note ---
Assessment and Plan Assessment and plan: Patient is a 43 yo woman without any chronic medical problems, not on any medications who presents to [facility] ED with sudden onset of severe constant sharp throbbing pressure like radiating to left shoulder chest pains that woke her up out of her sleep at 2 am this morning associated with n/v x 1 without ag gravating or relieving factors. She denies SOB, cough, syncope, palpitations, trauma, prior episodes (first visit here), fever, chills. D/W Dr. Chaves in ED, he wants IV nitroglycerin drip due to continuous chest pains and iv heparin; therefore, patient will be admitted to ICU due to the IV nitroglycerin drip. Patient denies any early CAD in family. * EKG is evolving with concern of STEMI especially in lateral leads (my review), d/w Dr. Chaves who will review NSTEMI per Dr. Uzma Chaves: s/p S/p C with PCI of LAD yesterday. Cont ASA, Effient, statin. Pt noted to have brief bouts of NSVT overnight. echo ordered, continue asa, bblocker, high intensity statin, zofran, ntg and morphine prn. Lipid panel pending, TSH. Consider ECHO at some point. Suspected Acute diastolic heart failure related to above: treat with bblocker, ntg Uncontrolled elevated blood pressure, most likely new onset Hypertension: low salt/cardiac diet and treat with antihypertensives, bblocker for now Anemia, microcytic: check iron study, ferritin Hyperglycemia without history of DM: check A1c, fasting bmp in am Dyslipidemia, new: start Statin Isolated elevated AST, mildly at 48 (normal level is up to 40): continue to monitor CMP Tobacco abuse: extensive counselling provided CAD: as noted above DVT ppx: heparin drip GI ppx: protonix full code Disposition: ICU History Interval history: Patient seen and examined, resting comfortable. Hospitalist Physical - Physical exam Narrative exam: Gen: WDWN, NAD, Awake, Alert, Orientated HEENT: NCAT, EOMI, PERRL, OP Clear Neck: supple, no adenopathy, no thyromegaly, no JVD CVS/Heart: RRR, normal S1S2, pulses present bilaterally Chest/Lungs: CTA B, Symmetrical chest expansion, good air entry bilaterally GI/Abdomen: soft, NTND, good bowel sounds, no guarding or rebound /Bladder: no suprapubic tenderness, no CVA or paraspinal tenderness Extermity/Skin: no c/c/e, no obvious rash MSK: FROM x 4 Neuro: CN 2-12 grossly intact, no new focal deficits Psych: normal mood and affect - Constitutional Vitals: Temp Pulse Resp BP Pulse Ox 98.6 F 70 20 123/84 99 05/01/19 12:28 05/01/19 12:28 05/01/19 08:29 05/01/19 12:28 05/01/19 12:28 General appearance: Present: mild distress, well-nourished Results - Labs CBC & Chem 7: 04/30/19 06:49 05/01/19 05:15 Labs: Laboratory Last Values WBC 8.2 K/mm3 (4.5-11.0) 04/30/19 06:49 RBC 4.35 M/mm3 (3.65-5.03) 04/30/19 06:49 Hgb 9.6 gm/dl (10.1-14.3) L 04/30/19 06:49 Hct 30.0 % (30.3-42.9) L 04/30/19 06:49 MCV 69 fl (79-97) L 04/30/19 06:49 MCH 22 pg (28-32) L 04/30/19 06:49 MCHC 32 % (30-34) 04/30/19 06:49 RDW 19.1 % (13.2-15.2) H 04/30/19 06:49 Plt Count 457 K/mm3 (140-440) H 04/30/19 06:49 Lymph % (Auto) 15.4 % (13.4-35.0) 04/30/19 06:49 [place] % (Auto) 5.6 % (0.0-7.3) 04/30/19 06:49 Eos % (Auto) 0.1 % (0.0-4.3) 04/30/19 06:49 Baso % (Auto) 0.4 % (0.0-1.8) 04/30/19 06:49 Lymph # 1.3 K/mm3 (1.2-5.4) 04/30/19 06:49 [place] # 0.5 K/mm3 (0.0-0.8) 04/30/19 06:49 Eos # 0.0 K/mm3 (0.0-0.4) 04/30/19 06:49 Baso # 0.0 K/mm3 (0.0-0.1) 04/30/19 06:49 Seg Neutrophils % 78.5 % (40.0-70.0) H 04/30/19 06:49 Seg Neutrophils # 6.5 K/mm3 (1.8-7.7) 04/30/19 06:49 PT 14.1 Sec. (12.2-14.9) 04/30/19 09:21 INR 1.12 (0.87-1.13) 04/30/19 09:21 APTT 28.2 Sec. (24.2-36.6) 04/30/19 09:21 235 (74-137) H 04/30/19 10:34 Sodium 140 mmol/L (137-145) 05/01/19 05:15 Potassium 3.6 mmol/L (3.6-5.0) 05/01/19 05:15 Chloride 106.1 mmol/L (98-107) 05/01/19 05:15 Carbon Dioxide 21 mmol/L (22-30) L 05/01/19 05:15 17 mmol/L 05/01/19 05:15 BUN 13 mg/dL (7-17) 05/01/19 05:15 0.8 mg/dL (0.7-1.2) 05/01/19 05:15 Estimated GFR > 60 ml/min 05/01/19 05:15 16 % 05/01/19 05:15 Glucose 107 mg/dL (65-100) H 05/01/19 05:15 5.9 % (4-6) 05/01/19 05:15 Calcium 8.8 mg/dL (8.4-10.2) 05/01/19 05:15 Magnesium 2.00 mg/dL (1.7-2.3) 04/30/19 09:21 Iron 19 ug/dL (37-170) L 05/01/19 05:15 TIBC 419 mcg/dL (250-450) 05/01/19 05:15 4.5 ng/mL (13.0-400.0) L 05/01/19 05:15 0.40 mg/dL (0.1-1.2) 05/01/19 05:15 < 0.2 mg/dL (0-0.2) 04/30/19 09:21 0.1 mg/dL 04/30/19 09:21 AST 92 units/L (5-40) H 05/01/19 05:15 ALT 26 units/L (7-56) 05/01/19 05:15 58 units/L (35-129) 05/01/19 05:15 1073 units/L (30-135) H 04/30/19 23:23 CK-MB (CK-2) 97.8 ng/mL (0.0-4.0) H 04/30/19 23:23 CK-MB (CK-2) Rel Index 9.1 (0-4) H 04/30/19 23:23 2.070 ng/mL (0.00-0.029) H* 04/30/19 23:23 NT-Pro-B Natriuret Pep 114.9 pg/mL (0-450) 04/30/19 09:21 7.4 g/dL (6.3-8.2) 05/01/19 05:15 3.8 g/dL (3.9-5) L 05/01/19 05:15 1.1 % 05/01/19 05:15 Triglycerides 75 mg/dL (2-149) 04/30/19 06:49 Cholesterol 149 mg/dL (50-199) 04/30/19 06:49 108 mg/dL (50-130) 04/30/19 06:49 39 mg/dL (40-59) L 04/30/19 06:49 3.82 % 04/30/19 06:49 HCG, Qual Negative (Negative) 04/30/19 06:49 Yellow (Yellow) 05/01/19 05:30 Slightly-cloudy (Clear) 05/01/19 05:30 5.0 (5.0-7.0) 05/01/19 05:30 Ur Specific [place] 1.030 (1.003-1.030) 05/01/19 05:30 30 mg/dl mg/dL (Negative) 05/01/19 05:30 Neg mg/dL (Negative) 05/01/19 05:30 Neg mg/dL (Negative) 05/01/19 05:30 Mod (Negative) 05/01/19 05:30 Neg (Negative) 05/01/19 05:30 Neg (Negative) 05/01/19 05:30 < 2.0 mg/dL (<2.0) 05/01/19 05:30 Ur Leukocyte Esterase Neg (Negative) 05/01/19 05:30 1.0 /HPF (0.0-6.0) 05/01/19 05:30 13.0 /HPF (0.0-6.0) 05/01/19 05:30 U Epithel Cells (Auto) 3.0 /HPF (0-13.0) 05/01/19 05:30 1+ /HPF (Negative) 05/01/19 05:30 3+ /HPF 05/01/19 05:30 Presumptive negative 05/01/19 05:30 Presumptive negative 05/01/19 05:30 Ur Barbiturates Screen Presumptive negative 05/01/19 05:30 Ur Phencyclidine Scrn Presumptive negative 05/01/19 05:30 Ur Amphetamines Screen Presumptive negative 05/01/19 05:30 U Benzodiazepines Scrn Presumptive positive 05/01/19 05:30 Presumptive negative 05/01/19 05:30 U Marijuana (THC) Screen Presumptive positive 05/01/19 05:30 Disclamer 05/01/19 05:30 Active Medications - Current Medications Current Medications: Generic Name Dose Route Start Last Admin Trade Name Freq PRN Reason Stop Dose Admin Acetaminophen 650 mg 04/30/19 10:17 04/30/19 21:35 Tylenol PO 650 mg Q6H PRN Administration Non Cardiac Pain or Temp>100.5 Aspirin 81 mg 05/01/19 10:00 05/01/19 11:00 Baby Aspirin PO 81 mg QDAY ZARA Administration Atorvastatin Calcium 80 mg 04/30/19 22:00 04/30/19 21:35 Lipitor PO 80 mg QHS ZARA Administration Metoprolol Tartrate 25 mg 04/30/19 11:00 05/01/19 11:00 Lopressor PO 25 mg BID ZARA Administration Morphine Sulfate 2 mg 04/30/19 11:00 Morphine IV Q4H PRN Pain , Severe (7-10) Nitroglycerin 0.4 mg 04/30/19 09:20 04/30/19 09:20 Nitrostat SL 0.4 mg .Q5MIN PRN Administration Chest Pain Ondansetron HCl 4 mg 04/30/19 10:17 Zofran IV Q4H PRN Nausea And Vomiting Pantoprazole Sodium 40 mg 05/01/19 10:00 05/01/19 11:00 Protonix PO 40 mg QDAY ZARA Administration Polyethylene Glycol 17 gm 04/30/19 11:00 Miralax 3350 PO QDAY PRN Constipation Prasugrel 10 mg 05/01/19 10:00 05/01/19 11:00 Effient PO 10 mg QDAY ZARA Administration
[2019-05-02 06:40] LABS: BUN/Creatinine Ratio 14; Blood Urea Nitrogen 10 mg/dL (7-17); Calcium 8.6 mg/dL (8.4-10.2); Hemolysis Index 34
[2019-05-02 08:26] VITALS: BP 131/85
[2019-05-02] MEDS: BABY ASPIRIN PO SCH (09:28)
[2019-05-02] MEDS: EFFIENT PO SCH (09:29)
[2019-05-02] MEDS: LOPRESSOR PO SCH (09:29)
[2019-05-02] MEDS: PROTONIX PO SCH (09:29)
--- NOTE | 2019-05-02 12:32 | Discharge Summary ---
Providers - Providers Date of Admission: 04/30/19 09:35 Attending physician: MARK HAGAN MD 04/30/19 09:07 Consult to Physician [CONS] Stat Comment: Consulting Provider: FABIAN BENZ Physician Instructions: Reason For Exam: CP pos trop 04/30/19 10:19 Consult to Physician [CONS] Routine Comment: Consulting Provider: CADY SANTIAGO Physician Instructions: Reason For Exam: [facility] admission and management Primary care physician: NOE WOLFE Hospitalization Reason for admission: nstemi Condition: Stable Hospital course: Patient is a 43 yo woman without any chronic medical problems, not on any medications who presents to [facility] ED with sudden onset of severe constant sharp throbbing pressure like radiating to left shoulder chest pains that woke her up out of her sleep at 2 am this morning associated with n/v x 1 without aggravating or relieving factors. She denies SOB, cough, syncope, palpitations, trauma, prior episodes (first visit here), fever, chills. D/W Dr. Benz in ED, he wants IV nitroglycerin drip due to continuous chest pains and iv heparin; therefore, patient will be admitted to ICU due to the IV nitroglycerin drip. Patient denies any early CAD in family. * EKG is evolving with concern of STEMI especially in lateral leads (my review), d/w Dr. Benz who will review * S/p [facility] with PCI of LAD , will place on ASA, Effient, statin. counselling including tobacco cessation discussed. NSTEMI s/p [facility] with PCI of LAD. Cont ASA, Effient, statin. Suspected Acute diastolic heart failure related to above: treat with bblocker, ntg Uncontrolled elevated blood pressure, most likely new onset Hypertension: low salt/cardiac diet and treat with antihypertensives, bblocker for now Anemia, microcytic: Hyperglycemia without history of DM: Dyslipidemia, new: s Isolated elevated AST, Tobacco abuse: extensive counselling provided CAD: as noted above Disposition: DC-01 TO HOME OR SELFCARE Time spent for discharge: 35 mins Core Measure Documentation - Palliative Care Palliative Care/ Comfort Measures: Not Applicable - Core Measures Any of the following diagnoses?: none Exam - Physical Exam Narrative exam: Gen: WDWN, NAD, Awake, Alert, Orientated HEENT: NCAT, EOMI, PERRL, OP Clear Neck: supple, no adenopathy, no thyromegaly, no JVD CVS/Heart: RRR, normal S1S2, pulses present bilaterally Chest/Lungs: CTA B, Symmetrical chest expansion, good air entry bilaterally GI/Abdomen: soft, NTND, good bowel sounds, no guarding or rebound /Bladder: no suprapubic tenderness, no CVA or paraspinal tenderness Extermity/Skin: no c/c/e, no obvious rash MSK: FROM x 4 Neuro: CN 2-12 grossly intact, no new focal deficits Psych: normal mood and affect - Constitutional Vitals: Temp Pulse Resp BP Pulse Ox 98.6 F 76 18 131/85 96 05/02/19 07:59 05/02/19 09:29 05/02/19 07:59 05/02/19 09:29 05/02/19 03:13 Plan Activity: advance as tolerated, fall precautions Diet: low fat Special Instructions: record daily weights, record daily BP diary, smoking cessation Additional Instructions: recommned recheck LFT in 3 weeks Follow up with: NOE WOLFE MD [Primary Care Provider] - 3-5 Days CALI SINGH MD [Staff Physician] - 7 Days SHAY BOYER MD [Staff Physician] - 7 Days Prescriptions: AtorvaSTATin [Lipitor] 40 mg PO QHS #30 tablet Aspirin [Aspirin BABY CHEW TAB] 81 mg PO QDAY #30 tab.chew Prasugrel [Effient] 10 mg PO QDAY #30 tablet Metoprolol [Lopressor TAB] 25 mg PO BID #60 tablet
--- NOTE | 2019-05-02 13:08 | Progress Note ---
Assessment and Plan S/p LHC with PCI of LAD. TTE reviewed - EF 40-45%. Currently stable cardiac status. Cont present cardiac management. Pt may discharge home from cardiology standpoint. Recommend follow up in our office with Dr. Chaves within 1-2 weeks of hospital discharge ([phone]). Pt verbalizes understanding. The patient has been seen in conjunction with Dr. Chaves who agrees with the assessment and plan of care. - Patient Problems (1) NSTEMI (non-ST elevated myocardial infarction) Current Visit: Yes Status: Acute (2) CAD (coronary artery disease) Current Visit: Yes Status: Chronic (3) Stented coronary artery Current Visit: Yes Status: Chronic (4) HTN (hypertension) Current Visit: Yes Status: Chronic (5) Dyslipidemia Current Visit: Yes Status: Chronic (6) Tobacco use Current Visit: Yes Status: Chronic Subjective Date of service: 05/02/19 Principal diagnosis: NSTEMI Interval history: pt resting comfortably in bed, no current complaints. tele reviewed - pt in SR overnight, no NSVT noted overnight. Objective Last Vital Signs Temp 98.6 F 05/02/19 07:59 Pulse 72 05/02/19 10:00 Resp 18 05/02/19 07:59 BP 131/85 05/02/19 09:29 Pulse Ox 96 05/02/19 03:13 - Physical Examination General: No Apparent Distress HEENT: Positive: PERRL Neck: Positive: neck supple, trachea midline. Negative: JVD/HJR Cardiac: Positive: Reg Rate and Rhythm, S1/S2 Lungs: Positive: clear to auscultation Neuro: Positive: Grossly Intact Abdomen: Positive: Unremarkable, Soft, Active Bowel Sounds Incision: Cardiac Cath Site (right radial c/d/i) Extremities: Present: normal, lower extr. pulses (4+) - Labs and Meds Comprehensive Metabolic Panel 05/02/19 Range/Units 04:50 Sodium 139 (137-145) mmol/L Potassium 3.8 (3.6-5.0) mmol/L Chloride 105.6 (98-107) mmol/L Carbon Dioxide 20 L (22-30) mmol/L BUN 10 (7-17) mg/dL Creatinine 0.7 (0.7-1.2) mg/dL Glucose 101 H (65-100) mg/dL Calcium 8.6 (8.4-10.2) mg/dL - Imaging and Cardiology EKG: report reviewed, image reviewed Echo: pending Cardiac cath: report reviewed Repolarization changes or abnormalities: ST or T wave suggestive of ischemia (in precardial leads)
== END 2019-05-02 16:30 | disposition home or self-care (01) | DRG 246 ==
LOC: ED 06:17 → CC1 09:35 → 4A 12:48
PROVIDERS: ADMIT Internal Medicine; ATTEND Internal Medicine
PROC: 027034Z Dilation of Coronary Artery, One Artery with Drug-eluting Intraluminal Device, Percutaneous Approach (ICD-10-PCS; principal; 2019-04-30)
PROC: 4A023N7 Measurement of Cardiac Sampling and Pressure, Left Heart, Percutaneous Approach (ICD-10-PCS; 2019-04-30)
PROC: B2111ZZ Fluoroscopy of Multiple Coronary Arteries using Low Osmolar Contrast (ICD-10-PCS; 2019-04-30)
PROC: B2151ZZ Fluoroscopy of Left Heart using Low Osmolar Contrast (ICD-10-PCS; 2019-04-30)
PROC: B240ZZ3 Ultrasonography of Single Coronary Artery, Intravascular (ICD-10-PCS; 2019-04-30)
DX: I21.4 Non-ST elevation (NSTEMI) myocardial infarction (principal); I50.31 Acute diastolic (congestive) heart failure; D50.9 Iron deficiency anemia, unspecified; E78.5 Hyperlipidemia, unspecified; F17.210 Nicotine dependence, cigarettes, uncomplicated; I11.0 Hypertensive heart disease with heart failure; R73.9 Hyperglycemia, unspecified; I25.10 Atherosclerotic heart disease of native coronary artery without angina pectoris; Z98.51 Tubal ligation status; Z82.49 Family history of ischemic heart disease and other diseases of the circulatory system; Z83.3 Family history of diabetes mellitus; Z82.3 Family history of stroke; Z71.6 Tobacco abuse counseling
CPT/HCPCS: 36415; 71045; 71046; 80048; 80053; 80061; 80076; 80307; 81001; 82550; 82553; 82728; 83036; 83550; 83735; 83880; 84484; 84703; 85025; 85347; 85610; 85730; 92928; 92978; 93005; 93010; 93306; 93458; 96361; 96374; 96375; G0378; A9270-GY; C1753; C1769; C1874; C1887; C1894; C9600; J1644; J2250; J2270; J2405; J3010; J3246; J7030; Q9967

== ENCOUNTER 2019-09-23 08:50 | Emergency (ER) | payer OTHER ==
[2019-09-23] MEDS ORDERED: BENZONATATE 100 MG CAP PO ONE (11:42)
[2019-09-23] MEDS ORDERED: IBUPROFEN 800 MG TAB PO ONE (11:42)
--- NOTE | 2019-09-23 12:05 | Emergency Department Report ---
Upper Respiratory HPI - HPI Chief Complaint: Upper Respiratory Infection Stated Complaint: FLU SX Time Seen by Provider: 09/23/19 11:31 Duration: 2 Days URI Symptoms: Rhinorrhea: Yes, Sore Throat: No, Ear Pain: No, Cough: Yes, Shortness of Breath: No, Sick Contacts: No, Unable to Take Fluids: No, Urine Output Abnormal: No, Listless Behavior: No Other History: This is a 44-year-old female nontoxic, well nourished in appearance, no acute signs of distress presents to the ED with c/o of productive cough, fever, chills, body aches, rhinorrhea, nasal congestion x2 days. Patient describes productive cough as yellow mucus production. Patient denies any sick contact. Patient denies any recent travels, long car, recent hospital stays. Patient denies any calf pain or calf tenderness. Patient denies any chest pain, short of breath, fever, chills, nausea, vomiting, hemoptysis, numbness, tingling, headache or stiff neck. Patient denies any allergies. Patient denies any significant PMH. - Home Meds and Allergies Home Medications: Previous Rx's Medication Instructions Recorded Last Taken Type Aspirin [Aspirin BABY CHEW TAB] 81 mg PO QDAY #30 tab.chew 05/02/19 Unknown Rx AtorvaSTATin [Lipitor] 40 mg PO QHS #30 tablet 05/02/19 Unknown Rx Metoprolol [Lopressor TAB] 25 mg PO BID #60 tablet 05/02/19 Unknown Rx Prasugrel [Effient] 10 mg PO QDAY #30 tablet 05/02/19 Unknown Rx Benzonatate [Tessalon Perles] 100 mg PO Q8HR PRN #20 capsule 09/23/19 Unknown Rx Ibuprofen [Motrin] 600 mg PO Q8H PRN #20 tablet 09/23/19 Unknown Rx Oseltamivir [Tamiflu] 75 mg PO BID #14 cap 09/23/19 Unknown Rx Allergies/Adverse Reactions: Allergies Allergy/AdvReac Type Severity Reaction Status Date / Time No Known Allergies Allergy Unverified 04/30/19 06:38 ED Review of Systems ROS: Stated complaint: FLU SX Other details as noted in HPI Constitutional: chills, fever Eyes: denies: eye pain, eye discharge, vision change ENT: congestion. denies: ear pain, throat pain Respiratory: cough. denies: shortness of breath, wheezing Cardiovascular: denies: chest pain, palpitations Endocrine: no symptoms reported Gastrointestinal: denies: abdominal pain, nausea, diarrhea Genitourinary: denies: urgency, dysuria, discharge Musculoskeletal: denies: back pain, joint swelling, arthralgia Skin: denies: rash, lesions Neurological: denies: headache, weakness, paresthesias Psychiatric: denies: anxiety, depression Hematological/Lymphatic: denies: easy bleeding, easy bruising ED Past Medical Hx - Past Medical History Previous Medical History?: Yes Hx Heart Attack/AMI: Yes - Surgical History Past Surgical History?: Yes Additional Surgical History: Tubal Ligation - Social History Smoking Status: Never Smoker - Medications Home Medications: Home Medications Medication Instructions Recorded Confirmed Last Taken Type Aspirin [Aspirin BABY CHEW TAB] 81 mg PO QDAY #30 tab.chew 05/02/19 Unknown Rx AtorvaSTATin [Lipitor] 40 mg PO QHS #30 tablet 05/02/19 Unknown Rx Metoprolol [Lopressor TAB] 25 mg PO BID #60 tablet 05/02/19 Unknown Rx Prasugrel [Effient] 10 mg PO QDAY #30 tablet 05/02/19 Unknown Rx Benzonatate [Tessalon Perles] 100 mg PO Q8HR PRN #20 capsule 09/23/19 Unknown Rx Ibuprofen [Motrin] 600 mg PO Q8H PRN #20 tablet 09/23/19 Unknown Rx Oseltamivir [Tamiflu] 75 mg PO BID #14 cap 09/23/19 Unknown Rx ED Bronchiolitis Physical Exam - Exam General: Vital signs noted. No distress. Alert and acting appropriately. Neurologic: Alert and oriented, no deficits. Musculoskeletal: Unremarkable. ED Bronchiolitis Tests - Testing Testing: CXR: Normal/Negative ED Physical Exam - General Limitations: No Limitations General appearance: alert, in no apparent distress - Head Head exam: Present: atraumatic, normocephalic - Eye Eye exam: Present: normal appearance - ENT ENT exam: Present: normal exam, normal orophraynx - Neck Neck exam: Present: normal inspection, full ROM. Absent: tenderness, meningismus, lymphadenopathy - Respiratory Respiratory exam: Present: normal lung sounds bilaterally. Absent: respiratory distress, wheezes, rales, rhonchi, stridor, chest wall tenderness, accessory muscle use, decreased breath sounds, prolonged expiratory - Cardiovascular Cardiovascular Exam: Present: regular rate, normal rhythm, normal heart sounds. Absent: irregular rhythm, systolic murmur, diastolic murmur, rubs, gallop - Extremities Exam Extremities exam: Present: normal inspection, full ROM, normal capillary refill - Back Exam Back exam: Present: normal inspection, full ROM. Absent: tenderness, CVA tenderness (R), CVA tenderness (L), muscle spasm, paraspinal tenderness, vertebral tenderness, rash noted - Neurological Exam Neurological exam: Present: alert, oriented X3, normal gait - Psychiatric Psychiatric exam: Present: normal affect, normal mood - Skin Skin exam: Present: warm, dry, intact, normal color. Absent: rash ED Course Vital Signs 09/23/19 09:21 Temperature 98.9 F Pulse Rate 105 H Respiratory 16 Rate O2 Sat by Pulse 100 Oximetry - Reevaluation(s) Reevaluation #1: 09/23/19 12:05 Patient is speaking in full sentences with no signs of distress noted. ED Medical Decision Making - Medical Decision Making This is a 44-year-old female that presents with influenza. Patient is stable and was examined by me. Chest x-ray has been obtained and dictated by radiologist with normal exam. Patient is notified of x-ray results with no questions noted. Patient be treated with Tamiflu. Patient was instructed to increase hydration, rest and take Motrin for fever episodes. Patient received motrin and tesslone perrls in the ED. Vitals stable. Patient is nonfebrile and normal heart rate. Patient was instructed Follow-up with a primary care doctor in 3-5 days or if symptoms worsen and continue return to emergency room as soon as possible. At time time of discharge, the patient does not seem toxic or ill in appearance. No acute signs of distress noted. Patient agrees to discharge treatment plan of care. No further questions noted by the patient. Critical care attestation.: If time is entered above; I have spent that time in minutes in the direct care of this critically ill patient, excluding procedure time. ED Disposition Clinical Impression: Influenza Disposition: DC-01 TO HOME OR SELFCARE Is pt being admited?: No Does the pt Need Aspirin: No Condition: Stable Instructions: Influenza (ED), Fever in Adults (ED) Additional Instructions: Follow-up with a primary care doctor in 3-5 days or if symptoms worsen and continue return to emergency room as soon as possible. Increased rest, hydration, and take Motrin/Tylenol as prescribed for fever episode. Prescriptions: Ibuprofen [Motrin] 600 mg PO Q8H PRN #20 tablet PRN Reason: Pain Oseltamivir [Tamiflu] 75 mg PO BID #14 cap Benzonatate [Tessalon Perles] 100 mg PO Q8HR PRN #20 capsule PRN Reason: Cough Referrals: PRIMARY MD LUIS [Primary Care Provider] - 3-5 Days NOE WOLFE MD [Staff Physician] - 3-5 Days [facility] [Outside] - 3-5 Days Forms: Work/School Release Form(ED)
--- NOTE | 2019-09-23 12:49 | XRay Report ---
CHEST 2 views INDICATION / CLINICAL INFORMATION: cough. COMPARISON: 04/30/2019 FINDINGS: SUPPORT DEVICES: None. HEART / MEDIASTINUM: No significant abnormality. LUNGS / PLEURA: No significant pulmonary or pleural abnormality. No pneumothorax. ADDITIONAL FINDINGS: Mild chronic elevation of the left hemidiaphragm. IMPRESSION: 1. No acute findings. No interval change. Signer Name: Awilda De Guzman MD Signed: 09/23/2019 12:44 PM Workstation Name: [id number]
[2019-09-23 14:03] VITALS: BP 142/89
== END 2019-09-23 13:54 | disposition home or self-care (01) ==
LOC: ED 08:50
DX: J11.1 Influenza due to unidentified influenza virus with other respiratory manifestations (principal); Z98.51 Tubal ligation status; I25.2 Old myocardial infarction; Z79.899 Other long term (current) drug therapy
CPT/HCPCS: 71046